=== PATIENT | male | born 1970 | race Caucasian/White ===

== ENCOUNTER → 2017-04-19 | Outpatient (CLI) | payer BC, OTHER ==
--- NOTE | 2017-04-19 10:06 | DIAGNOSTIC IMAGING REPORT ---
R ANKLE MIN 3 VIEWS CLINICAL HISTORY: Right lateral ankle instability. COMPARISON: None FINDINGS: Alignment of the right ankle is anatomic. No fracture or osseous lesion is present. Talar dome is intact. A tiny ossific/calcific density along the medial malleolus is old. Joint spaces are preserved. IMPRESSION: No significant abnormality of the right ankle. Electronically signed by: Asaf Baez M.D. 04/19/2017 10:05 AM Dictated Date/Time: 04/19/2017 10:04 AM
== END | disposition home or self-care (01) ==
LOC: C.RDSM 11:30
PROVIDERS: ATTEND Family Medicine
DX: M12.571 Traumatic arthropathy, right ankle and foot (principal)